=== PATIENT | female | born 1980 | race Caucasian/White ===

== ENCOUNTER 2019-11-19 13:07 | Observation (INO) ==
[2019-11-19 13:44] LABS: INFLUENZA A NEGATIVE (NEGATIVE); INFLUENZA B NEGATIVE (NEGATIVE)
--- NOTE | 2019-11-19 13:53 | PROVIDER DOCUMENTATION ---
HPI-Chest Pain - General Chief Complaint: Earache Stated Complaint: COLD SX Time Seen by Provider: 11/19/19 13:22 Source: patient Allergies/Adverse Reactions: Patient Allergies Allergy/AdvReac Type Severity Reaction Status Date / Time Penicillins Allergy Severe Unknown Verified 11/06/19 16:08 Home Medications: Home Medication List Medication Instructions Recorded Confirmed Last Taken Type Fluticasone 50 Mcg Nasal Alloy 1 spray INTRANASAL DAILY #1 bottle 11/06/19 Unknown Rx [Flonase] Guaifenesin/Dm E.r. [Mucinex Dm] 1 - 2 ea PO BID #20 tab 11/06/19 Unknown Rx - History of Present Illness-CP Nature of Presenting Problem: 39 YOF PRESENTS WITH C/O B EAR PAIN, MUFFLED HEARING AND CHEST HEAVINESS X 1 WK. REPORTS SHE WAS SEEN AT [facility] AND WITH URI. SHE REPORTS OCC COUGH AND FEELING IF SHE CANNOT GET A DEEP BREATH. Location: reports: substernal Chest Pain Radiation: reports: no radiation Quality of Pain: reports: other (HEAVINESS) Severity in ED: moderate Onset/Duration: 1 week ago Timing: still present Context/Activities at Onset: reports: none Modifying Factors: improves with: coughing (OCC) Nitro Today/Relief: no nitro taken today Aspirin Treatment Today: no aspirin today Prior Chest Pain/Cardiac Workup: reports: no prior cardiac workup Similar Symptoms Previously?: No Recently Seen Here or By Another Healthcare Provider: No Review of Systems - Adult - REVIEW OF SYSTEMS - ADULT Constitutional: reports: no symptoms reported. denies: see HPI, chills, fever, fatique, night sweats, weight gain, weight loss, other Eyes: reports: no symptoms reported. denies: see HPI, discharge, dry eyes, decreased vision, blurred vision, double vision, eye pain, redness, other Ears, Nose, Mouth & Throat: reports: no symptoms reported. denies: see HPI, ear discharge, ear pain, hearing loss, tinnitus, epistaxis, sinus problem, nose pain, loose teeth, mouth/dental pain, mouth swelling, hoarseness, throat pain, throat swelling, other Cardiovascular: reports: chest pain. denies: no symptoms reported, edema, heart murmur, irregular heart rate, orthopnea, palpitations, poor circulation, PND, syncope, other Respiratory: reports: cough, shortness of breath. denies: no symptoms reported, see HPI, chronic cough, dyspnea on exertion, excessive sputum production, hemoptysis, pleurisy, wheezing, other Gastrointestinal: reports: no symptoms reported. denies: see HPI, abdominal pain, hematemesis, constipation, diarrhea, difficulty swallowing, frequent heartburn, nausea, poor appetite, rectal bleeding, vomiting, other Genitourinary: reports: no symptoms reported. denies: see HPI, dysuria, discharge, frequency, flank pain, frequent UTI's, hematuria, hesitency, incontinence, urinary retention, urgency, other Musculoskeletal: reports: no symptoms reported. denies: see HPI, bone pain, back pain, frequent leg cramps, joint pain, joint swelling, muscle aches, muscle weakness, neck pain, other Integumentary: reports: no symptoms reported. denies: see HPI, hives, hair loss, itching, mole changes, nail changes, rash, skin sores/ulcer, skin thickening, other Neurological: reports: no symptoms reported. denies: see HPI, ataxia, dizziness/vertigo, headache/migraines, loss of balance, numbness, paresthesia, seizure, slurred speech, syncope, tremors, other Psychiatric: reports: no symptoms reported. denies: see HPI, anxiety, anti- depressant use, alcohol/drug dependence, depression, emotional problems, insomnia, panic attacks, suicidal thoughts, other Endocrine: reports: no symptoms reported. denies: see HPI, change in skin pigment, excessive sweating, goiter, cold intolerance, heat intolerance, increased hunger, increased thirst, polyuria, other Hematologic/Lymphatic: reports: no symptoms reported. denies: see HPI, blood clots, easy bruising, low blood count, lymphedema, prolonged bleeding, swollen lymph nodes, transfusions, other Allergic/Immunologic: reports: no symptoms reported. denies: see HPI, allergic reactions, allergic rhinitis, asthma, eczema, food allergy, frequent infections, hay fever, hives, positive PPD, urticaria, other Past History - Adult - PAST MEDICAL HISTORY-ADULT Review of Records: reports: Nursing Assessment Review, Social history reviewed & non-contributory. Major Childhood Illnesses: reports: denies history Cardiovascular: reports: denies history Respiratory: reports: denies history Gastrointestinal: reports: denies history Obstetrical/Gynecological: reports: denies history Genitourinary: reports: denies history Musculoskeletal: reports: denies history Neurological: reports: denies history Endocrine/Immune: reports: denies history Other Conditions: reports: denies history Physical Exam-General - PHYSICAL EXAM-ADULT Initial Vital Signs Reviewed: Yes - CONSTITUTIONAL General Appearance: appears well, alert, no apparent distress - EYES Eyes: PERRL/EOMI, pink conjunctivae - HEAD, EARS, NOSE, MOUTH & THROAT HENMT: normocephalic/atraumatic, moist mucous membranes, normal ENT inspection - NECK Neck: non-tender, full range of motion, supple - RESPIRATORY Respiratory: chest non-tender, lungs clear, normal breath sounds, no pleuratic chest pain, no respiratory distress, no accessory muscle use - CARDIOVASCULAR Cardiovascular: normal peripheral pulses, regular rate, rhythm, no edema, no gallop, no JVD - GASTROINTESTINAL (ABDOMEN) Abdominal Exam: normal bowel sounds, non tender, soft, no organomegaly, no pulsatile mass - LYMPHATIC Lymphatic: no adenopathy - MUSCULOSKELETAL Back Exam: normal inspection, no CVA tenderness, no vertebral tenderness Extremity: normal range of motion, non-tender, normal gait - SKIN Integumentary: normal color, normal turgor, warm/dry - NEUROLOGIC Neurologic: grossly normal - PSYCHIATRIC Psych/Mental Status: normal mood/affect, oriented x 3 - HEART Score HEART Score: History: Slightly Suspicious HEART Score: ECG: Non-Specific Repolarization Disturbance/LBBB/PM HEART Score: Age: < or = 45 Years HEART Score: Risk Factors for Atherosclerotic Disease: 1 or 2 Risk Factors HEART Score: Troponin: < or = Normal Limit Total HEART Score:: 2 Progress - PLAN OF CARE/RESULTS Progress/Plan/Lab Results: Vital Signs - 8 hr 11/19/19 13:12 Temperature 98.0 F Pulse Rate 97 H Respiratory Rate 18 Blood Pressure 118/68 O2 Sat by Pulse Oximetry 100 Laboratory Results - last 24 hr 11/19/19 11/19/19 11/19/19 13:16 14:05 14:05 WBC 9.22 RBC 3.97 L Hgb 7.1 L Hct 27.2 L MCV 68.5 L MCH 17.9 L MCHC 26.1 L RDW Std Deviation 20.9 H Plt Count 826 H MPV 9.8 Immature Gran % (Auto) 0.3 Neut % (Auto) 67.7 Lymph % (Auto) 22.9 [place] % (Auto) 5.7 Eos % (Auto) 1.2 Baso % (Auto) 2.2 H Immature Gran # (Auto) 0.03 Neut # (Auto) 6.24 Lymph # (Auto) 2.11 [place] # (Auto) 0.53 Eos # (Auto) 0.11 Baso # (Auto) 0.20 Segmented Neutrophils Not Reportable D-Dimer, Quantitative < 0.27 Sodium Potassium Chloride Carbon Dioxide Anion Gap BUN Creatinine Estimated GFR/1.73 m2 BUN/Creatinine Ratio Glucose Calculated Osmolality Calcium Total Bilirubin AST ALT Alkaline Phosphatase Troponin T High Sens Total Protein Albumin Globulin Albumin/Globulin Ratio Stool Occult Blood Influenza A (Rapid) NEGATIVE Influenza B (Rapid) NEGATIVE 11/19/19 11/19/19 11/19/19 14:05 14:05 15:13 WBC RBC Hgb Hct MCV MCH MCHC RDW Std Deviation Plt Count MPV Immature Gran % (Auto) Neut % (Auto) Lymph % (Auto) [place] % (Auto) Eos % (Auto) Baso % (Auto) Immature Gran # (Auto) Neut # (Auto) Lymph # (Auto) [place] # (Auto) Eos # (Auto) Baso # (Auto) Segmented Neutrophils D-Dimer, Quantitative Sodium 138 Potassium 4.5 Chloride 101 Carbon Dioxide 25 Anion Gap 12 BUN 10 Creatinine 0.8 Estimated GFR/1.73 m2 > 60 BUN/Creatinine Ratio 13 Glucose 109 H Calculated Osmolality 275 Calcium 9.2 Total Bilirubin 0.60 AST 18 ALT 10 Alkaline Phosphatase 49 Troponin T High Sens 17 Total Protein 8.0 Albumin 4.6 Globulin 3.0 Albumin/Globulin Ratio 1.0 Stool Occult Blood NEGATIVE Influenza A (Rapid) Influenza B (Rapid) Orders Category Date Time Status CHEST-2 VIEWS [RAD] Stat Exams 11/19/19 13:42 Completed CBC WITH ELECTRONIC DIFF [HEME] Stat Lab 11/19/19 14:05 Completed COMPREHENSIVE METABOLIC PANEL [CHEM] Stat Lab 11/19/19 14:05 Completed D-DIMER [COAG] Stat Lab 11/19/19 14:05 Completed Flu [INFLUENZA SCREEN PL] Stat Lab 11/19/19 13:16 Completed OCCULT BLOOD SCREEN STOOL PL Stat Lab 11/19/19 15:13 Completed TROPONIN T HIGH SENSITIVITY Stat Lab 11/19/19 14:05 Completed EKG [EKG] Stat Ther 11/19/19 13:42 Ordered H&H NOTED TO BE LOW, CHECKED HEMACULT PT REPORTS PMH OF ANEMIA. DENIES BLOOD IN STOOL, BLACK STOOLS, BLOOD IN URINE OR HEAVY VAGINAL BLEEDING. Result Diagrams: 11/19/19 14:05 11/19/19 14:05 - EKG 1 Time of EKG reading by physician:: 15:12 EKG Read and Signed by:: Ángel Almeida EKG Interpretation (*Must complete 3 of following elements*): Abnormal Rate: 79 Rhythm: NSR [place]: normal QRS: normal, other (MINIMAL LVH CRITERIA) ST Wave: non-specific ST changes Prior EKG Comparison: changes noted (FROM 2012) - XRAY 1 XRAY Study: Chest Impression: See EMR Report (EXAM: CHEST-2 VIEWS - 11/19/2019 HISTORY: CP TECHNIQUE: Chest two views COMPARISON: 07/13/2013 one view chest FINDINGS: Heart size is normal. The lungs appear clear. There is no pleural effusion or pneumothorax identified. IMPRESSION: No evidence of acute disease. Electronically signed by Kirill Ventura 11/19/2019 2:26 PM 11/19/19 1426 Interpreting Physician: Kirill Ventura MD Dictated Date/Time: 11/19/19 1424 cc: Emma Galvez; None,PCP) Departure - Departure Date of Disposition Decision: 11/19/19 Time of Disposition Decision: 15:34 DIAGNOSIS: Anemia, Symptomatic anemia, Dysfunctional uterine bleeding, Earache Disposition: ADMITTED INPATIENT 09 Certified Medical Emergency: Emergent Condition: Stable Referrals and Follow-Ups: None,PCP [Primary Care Provider] - - Critical Care Note This patient required my direct & personal management of CC.: No Attestation - Physician/ AMANDA Attestation Patient care was provided by Advanced Practice Provider:: Yes Advanced Practice Provider:: Emma Galvez Advanced Practice Provider documentation review:: The Mid-level provider documentation, treatment plan and medical decision making was reviewed by the physician who agrees with all treatment and medical decision making by the MLP. The physician spent face to face time with patient:: No Advanced Practice Provider documentation review:: Supervising physician onsite and consulted in the evaluation and care of this patient. The physician did not have a face to face encounter with the patient.
[2019-11-19 14:22] LABS: BASO% 2.2 % (0.0-0.8); EOS# 0.11 X1000 (0.0-0.7); EOS% 1.2 % (0.0-10.0); HEMATOCRIT 27.2 % (37.0-47.0); HEMOGLOBIN 7.1 g/dL (12.0-16.0); IMM GRAN# 0.03 X1000 (0.0-0.04); IMM GRAN% 0.3 % (0.0-0.5); LYMPH# 2.11 X1000 (1.2-3.4); LYMPH% 22.9 % (20.5-51.1); MCH 17.9 PG (27-31); MCHC 26.1 g/dL (33-37); MCV 68.5 FL (81-99); MONO# 0.53 X1000 (0.11-0.59); MONO% 5.7 % (1.7-9.3); MPV 9.8 FL (7.4-10.4); NEUT# 6.24 X1000 (1.4-6.5); NEUT% 67.7 % (42.2-75.2); PLT 826 X1000 (130-400); RBC 3.97 XMIL (4.2-5.4); RDW 20.9 % (11.5-14.5); WBC 9.22 X1000 (4.8-10.8)
--- NOTE | 2019-11-19 14:28 | Diag Imaging Result Doc PS360 ---
EXAM: CHEST-2 VIEWS - 11/19/2019 HISTORY: CP TECHNIQUE: Chest two views COMPARISON: 07/13/2013 one view chest FINDINGS: Heart size is normal. The lungs appear clear. There is no pleural effusion or pneumothorax identified. IMPRESSION: No evidence of acute disease. Electronically signed by Kirill Ventura 11/19/2019 2:26 PM
[2019-11-19 14:42] LABS: AGAP 12; ALBUMIN 4.6 g/dL (3.5-5.0); ALKALINE PHOSPHATASE 49 U/L (32-104); BUN 10 mg/dL (8-22); CALCIUM 9.2 mg/dL (8.8-10.2); CHLORIDE 101 mmol/L (98-107); COSMO 275; CREATININE 0.8 mg/dL (0.5-0.9); ESTIMATED GFR > 60; GLUCOSE 109 mg/dL (70-104); GOT 18 U/L (10-30); GPT 10 U/L (10-36); POTASSIUM 4.5 mmol/L (3.5-5.1); SODIUM 138 mmol/L (136-145); TCO2 25 mmol/L (25-35)
[2019-11-19 15:29] LABS: OCCULT BLOOD 1 NEGATIVE (NEGATIVE)
--- NOTE | 2019-11-19 17:22 | EKG Report ---
Test Performed on : 11/19/2019 3:02:35 PM Test Reason : CP Blood Pressure : / mmHG Vent. Rate : 079 BPM Atrial Rate : 079 BPM P-R Int : 176 ms QRS Dur : 094 ms QT Int : 350 ms P-R-T Axes : 032 -08 147 degrees QTc Int : 401 ms Normal sinus rhythm. Minimal voltage criteria for LVH, may be normal variant T wave abnormality, consider lateral ischemia Abnormal ECG When compared with ECG of 04-MAR-2013 09:07, aberrant conduction. is no longer present Questionable change in QRS axis T wave inversion now evident in Lateral leads Unconfirmed Result
[2019-11-19] MEDS ORDERED: TYLENOL PO PRN (18:04)
[2019-11-19] MEDS ORDERED: ZOFRAN IV PRN (18:04)
[2019-11-19] MEDS ORDERED: NS 1,000 ML IV SCH (18:04)
[2019-11-19] MEDS ORDERED: FLU VACCINE IM ONE (18:27)
--- NOTE | 2019-11-19 18:35 | HISTORY AND PHYSICAL ---
PRIMARY CARE PHYSICIAN: Listed as none. CHIEF COMPLAINT: Shortness of breath, fatigue, chest heaviness over the past week that has progressively worsened states she feels that she could not take a deep breath. HISTORY OF PRESENTING ILLNESS: This is a 39-year-old female who presents to [facility] ER with complaints of fatigue, no energy, a chest heaviness as if she cannot take a deep breath. States she was seen at the [facility] [place] and diagnosed with a URI recently. Workup showed hemoglobin and hematocrit of 7.1 and 27.2. Stool for occult blood was negative. She denied any hematuria, black tarry stools, melena, hematochezia. States that she has heavy menstrual bleeding so she will be admitted for further evaluation and treatment. PAST MEDICAL HISTORY: Of hypothyroidism, GERD and restless legs syndrome. PAST SURGICAL HISTORY: Cholecystectomy, tubal ligation and tonsillectomy. FAMILY HISTORY: Reviewed and noncontributory. SOCIAL HISTORY: She currently lives with family. Denied any tobacco, alcohol or illicit drug use. ALLERGIES: Penicillin. HOME MEDICATIONS: A current list will need to be obtained, reconciled, reviewed, restarted as appropriate, will place an order for nursing to update and confirm home medications. LABORATORY DATA: Showed a white blood cell count of 9.22, hemoglobin 7.1, hematocrit 27.2, platelets 826,000, D-dimer less than 0.27. Sodium 138, potassium 4.5, chloride 101, CO2 25, BUN of 10, creatinine 0.8, glucose 109. Troponin was 17. Stool for occult blood was negative. Influenza A and B were both negative. Chest x-ray showed no evidence of acute disease. REVIEW OF SYSTEMS: She denied any fever, chills, blurred vision, dizziness. She did have chest heaviness, shortness of breath, felt as though she could not take a deep breath. Denied any abdominal pain, constipation, diarrhea, burning or hurting with urination, hematuria, melena, hematochezia. PHYSICAL EXAMINATION: On arrival she had a temperature of 98 degrees, pulse 97, respirations 18, blood pressure 118/68, saturating 100% on room air. GENERAL: This is a 39-year-old female who is lying in the bed and answers questions appropriately. HEENT: Normocephalic, atraumatic. Normal ENT inspection. Oropharynx and nares are clear. Pupils are equal, round, reactive to light, accommodation. Extraocular movements are intact. NECK: Normal inspection, normal range of motion. LUNGS: Clear to auscultation bilaterally with equal lung expansion, chest wall movement. HEART: Regular rate and rhythm. No murmurs, rubs, or gallops. ABDOMEN: Soft, nontender, nondistended. Bowel sounds are present x4 quadrants. MUSCULOSKELETAL: She has 5/5 strength x4 extremities. NEUROLOGICAL: The cranial nerves 2-12 appear grossly intact. ASSESSMENT: 1. Symptomatic anemia. 2. Fatigue. 3. Dysfunctional uterine bleeding. OUR PLAN: She will be admitted to the medical unit placed on telemetry. Will transfuse 1 unit of packed red blood cells today. We will do iron studies, place her on normal saline at 50 mL an hour, regular diet and we will recheck a CBC, BMP in the a.m. She will certainly need some [facility] [facility] [facility] followup outpatient as this appears to be secondary to her heavy menstrual cycle. Dictated by CHRYSTAL Spence for Vikash Bowles MD cc: CHRYSTAL Spence MD
[2019-11-19 18:53] LABS: IRON SATURATION 3 %; TIBC 540 ug/dL; TOTAL IRON 18 ug/dL (49-151); UNBOUND IRON 522 ug/dL (112-346)
--- NOTE | 2019-11-19 19:55 | HISTORY AND PHYSICAL ---
ADDENDUM: Patient seen and examined by myself. Full note dictated discussed with nurse practitioner. Patient presented to the hospital with heavy menstrual periods. Notes that she has been bleeding heavily for the past several weeks. Her hemoglobin and hematocrit is down to 7 and 21. She does have a previous hemoglobin on record, but this was back in 2016 at 12.6. Given the fact that she has been having heavy periods, she has been lightheaded and dizzy, and feels as though her skin is pale, we are going to admit her to the hospital and type, crossmatch and transfuse, and will follow. cc: Vikash Bowles MD
[2019-11-19 21:43] LABS: FERRITIN 3 ng/mL (13-150)
[2019-11-20 06:21] LABS: AGAP 10; BUN 12 mg/dL (8-22); CALCIUM 8.5 mg/dL (8.8-10.2); CHLORIDE 102 mmol/L (98-107); COSMO 272; CREATININE 0.9 mg/dL (0.5-0.9); ESTIMATED GFR > 60; GLUCOSE 106 mg/dL (70-104); POTASSIUM 4.4 mmol/L (3.5-5.1); SODIUM 136 mmol/L (136-145); TCO2 24 mmol/L (25-35)
[2019-11-20 06:33] LABS: BASO# 0.09 X1000 (0.0-0.2); BASO% 1.4 % (0.0-0.8); EOS# 0.06 X1000 (0.0-0.7); EOS% 0.9 % (0.0-10.0); HEMATOCRIT 29.1 % (37.0-47.0); HEMOGLOBIN 7.7 g/dL (12.0-16.0); IMM GRAN# 0.03 X1000 (0.0-0.04); IMM GRAN% 0.5 % (0.0-0.5); LYMPH% 25.9 % (20.5-51.1); MCH 18.7 PG (27-31); MCHC 26.5 g/dL (33-37); MCV 70.6 FL (81-99); MONO# 0.39 X1000 (0.11-0.59); MONO% 5.9 % (1.7-9.3); NEUT% 65.4 % (42.2-75.2); PLT 638 X1000 (130-400); RBC 4.12 XMIL (4.2-5.4); RDW 20.9 % (11.5-14.5); WBC 6.57 X1000 (4.8-10.8)
[2019-11-20 08:14] VITALS: BP 115/64
--- NOTE | 2019-11-20 20:21 | DISCHARGE SUMMARY ---
ADMISSION DATE: 11/19/2019 DISCHARGE DATE: 11/20/2019 DISCHARGE DIAGNOSES: 1. Symptomatic anemia, improved after transfusion. 2. Dysfunctional uterine bleeding. 3. [*]. 4. Hypothyroidism. 5. Gastroesophageal reflux disease (GERD). 6. Restless leg. CONSULTATIONS: None. PROCEDURES: None. BRIEF HOSPITAL COURSE: The patient is a 39-year-old female who presented to the hospital secondary to dysfunctional uterine bleeding. She was typed and crossed and transfused 1 unit. Symptoms have resolved. She is still having some menstrual bleeding, but that has improved. DISPOSITION: The patient will be discharged home on Provera for 10 days. Discussed with her that she needs to follow up outpatient with treatment facility of choice, [facility] to treat her dysfunctional bleeding. TIME SPENT: Greater than 30 minutes was spent in total care. cc: Vikash Bowles MD
== END 2019-11-20 11:02 | disposition home or self-care (01) ==
LOC: P.ED 13:07 → P.MEDSURG 17:00 → INTOOBSV 17:00
PROVIDERS: ATTEND Family Medicine